=== PATIENT | male | born 1955 ===

== ENCOUNTER 2023-01-08 08:52 | Outpatient (CLI) | payer BC | END 2023-01-08 08:53 | disposition home or self-care (01) | LOC: ULT 08:52 | PROVIDERS: ATTEND Student in an Organized Health Care Education/Training Program | DX: N18.31 Chronic kidney disease, stage 3a (principal); N28.1 Cyst of kidney, acquired; N28.89 Other specified disorders of kidney and ureter | CPT/HCPCS: 76770; 93975 ==